=== PATIENT | female | born 1990 | race Caucasian/White ===

== ENCOUNTER 2018-05-27 02:34 | Inpatient (IN) | payer BC ==
[2018-05-27 03:19] LABS: APPEARANCE,URINE SLIGHTLY-CLOUDY; BILIRUBIN,URINE NEGATIVE (NEGATIVE); COLOR,URINE YELLOW; GLUCOSE, URINE NEGATIVE (NEGATIVE); KETONES,URINE TRACE mg/dL (NEGATIVE); LEUKOCYTE ESTERASE,URINE NEGATIVE (NEGATIVE); NITRITE,URINE NEGATIVE (NEGATIVE); PROTEIN,URINE NEGATIVE (NEGATIVE); URINE SPECIFIC GRAVITY 1.012; UROBILINOGEN,URINE NEGATIVE mg/dL (<2.0)
--- NOTE | 2018-05-27 03:31 | Admission Physical ---
Datetime Report Generated by CPN: 05/27/2018 03:31 CURRENT ADMISSION Chief Complaint: Uterine Contractions; Suspected Ruptured Membranes Indication for Induction: Not Applicable Admit Impression : Term, Intrauterine ; Ruptured Membranes Admit Plan: Admit to Unit; Initiate Labor Augmentation Protocol ALLERGIES Medication Allergies: No Medication Allergies: No Known Allergies (05/27/2018) Latex: No Latex Allergies OBSTETRICAL HISTORY EDC: 06/08/2018 00:00 : 2 Para: 0 Term: 0 : 0 SAB: 1 IAB: 0 Ectopic: 0 Livin Cesareans: 0 VBACs: 0 Multiple Births: 0 Gestational Diabetes: No Rh Sensitization: No Incompetent Cervix: No SPEEDY: No Infertility: No ART Treatment: No Uterine Anomaly: No IUGR: No Hx Previous C/S: No Macrosomia: No Hx Loss/Stillborn: No PIH: No Hx : No Placenta Previa/Abruption: No Depression/PP Depression: No PTL/PROM: No Post Hemorrhage: No Current Procedures: Ultrasound; NST Obstetrical History Comments: G1 - G2 - Current SEE RECORDS Alcohol: No Marijuana : No Cocaine: No Other Illicit Drugs: No Cigarettes: Never Smoker. [id number] MEDICAL HISTORY Diabetes: No Blood Transfusion: No Pulmonary Disease (Asthma, TB): No Breast Disease: No Hypertension: No Assistant Branch Manager Surgery: No Heart Disease: No Hosp/Surgery: No Autoimmune Disorder: No Anesthetic Complications: No Kidney Disease: No Abnormal Pap Smear: Yes Neuro/Epilepsy: No Psychiatric Disorders: No Other Medical Diseases: No Hepatitis/Liver Disease: No Significant Family History: No Varicosities/Phlebitis: No Trauma/Violence : No Thyroid Dysfunction: No Medical History Comments: LGSIL, INFECTIOUS HISTORY Gonorrhea: No Genital Herpes: No Chlamydia: No Tuberculosis: No Syphilis: No Hepatitis: No HIV/AIDS Exposure: No Rash or Viral Illness: No HPV: No PHYSICAL EXAM General: Normal HEENT: Normal Neurologic: Normal Thyroid: Normal Heart: Normal Lungs: Normal Breast: Normal Back: Normal Abdomen: Normal Genitourinary Exam: Normal Extremities: Normal DTRs: Normal Pelvic Type: Adequate Vital Signs: Reviewed; Within Normal Limits VAGINAL EXAM Dilatation: ft Effacement: thick Station: -3 Contraction Comments: irreg MEMBRANES [place] Results: Positive Membranes: Ruptured FETUS A EGA: 38.2 Monitoring: External US FHR- Baseline: 130s Variability: Moderate 6-25bpm Accelerations: 15X15 Decelerations: None FHR Category: Category I Admit Comment: PROM @ 0030 PLANS FOR LABOR AND DELIVERY Labor and Delivery: None Pain Management: Epidural Feeding Preference: Breast Benefit of Breast Feed Discussed: Yes Circumcision: N/A INFORMED CONSENT Signature: with User ID: [email or web address]
[2018-05-27 03:36] LABS: URINE AMPHETAMINES SCREEN NEGATIVE; URINE BARBITURATES SCREEN NEGATIVE; URINE BENZODIAZEPINES SCREEN NEGATIVE; URINE COCAINE SCREEN NEGATIVE; URINE MARIJUANA (THC) SCREEN NEGATIVE; URINE METHADONE SCREEN NEGATIVE; URINE PHENCYCLIDINE SCREEN NEGATIVE
[2018-05-27] MEDS ORDERED: OXYTOCIN/NORMAL SALINE 20 UNIT/1,000 ML RTUINJ IV PRN (03:57)
[2018-05-27] MEDS ORDERED: RINGERS SOLUTION,LACTATED 300 ML IV ONE (03:57)
[2018-05-27] MEDS ORDERED: OXYTOCIN 10 UNIT/ML VIAL ONE (04:01)
[2018-05-27] MEDS ORDERED: OXYTOCIN/NORMAL SALINE 20 UNIT/1,000 ML RTUINJ ONE (04:02)
[2018-05-27] MEDS ORDERED: LIDOCAINE 1% INJ-PF (10 MG/ML) 30 ML SDV ONE (04:02)
[2018-05-27] MEDS ORDERED: MISOPROSTOL 0.2 MG TABLET ONE (04:02)
[2018-05-27] MEDS: RINGERS SOLUTION,LACTATED 1,000 ML IV PRN ×2 (04:13→09:17)
[2018-05-27] MEDS ORDERED: MAG HYDROX/AL HYDROX/SIMETH SUSP 30 ML UDCUP ONE (04:25)
[2018-05-27 04:33] LABS: ABSOLUTE EOSINOPHILS # (AUTO) 0.1 10^3/uL (0.0-0.6); ABSOLUTE LYMPHOCYTES (AUTO) 2.5 10^3/uL (0.5-4.7); ABSOLUTE MONOCYTES (AUTO) 0.7 10^3/uL (0.1-1.4); ABSOLUTE NEUT (AUTO) 7.2 10^3/uL (1.7-8.2); BASOPHILS % (AUTO) 0.3 % (0-2); EOSINOPHILS % (AUTO) 0.6 % (0-6); HEMATOCRIT 28.3 % (36.0-47.0); HEMOGLOBIN 9.3 g/dL (12.0-15.5); LYMPHOCYTES % (AUTO) 23.7 % (13-45); MEAN CORPUSCULAR HEMOGLOBIN 24.5 pg (27.0-33.4); MEAN CORPUSCULAR HGB CONC 32.8 g/dL (32.0-36.0); MEAN CORPUSCULAR VOLUME 75 fl (80-97); MONOCYTES % (AUTO) 6.7 % (3-13); PLATELET COUNT 217 10^3/uL (150-450); RED BLOOD COUNT 3.78 10^6/uL (3.72-5.28); RED CELL DISTRIBUTION WIDTH 16.6 % (11.5-14.0); SEGMENTED NEUTROPHILS % (AUTO) 68.7 % (42-78); TOTAL CELLS COUNTED % (AUTO) 100 %; WHITE BLOOD COUNT 10.5 10^3/uL (4.0-10.5)
[2018-05-27] MEDS ORDERED: ONDANSETRON HCL INJ/PF 4 MG/2 ML SDV ONE (06:24)
[2018-05-27] MEDS ORDERED: NALBUPHINE HCL INJ 10 MG/1 ML AMPULE ONE (09:08)
[2018-05-27] MEDS ORDERED: PROMETHAZINE HCL INJ 25 MG/1 ML VIAL ONE (09:09)
--- NOTE | 2018-05-27 09:26 | L&D Progress Notes ---
PROGRESS NOTES Datetime Report Generated by CPN: 05/27/2018 09:25 PROGRESS NOTE Impression: Reassuring Heart Rate Procedures: Sterile Vag Exam Plan: Continue Present Management Comment: continue mgmt clear fluid pain meds VAGINAL EXAM Dilatation: ft Effacement: thick Station: -3 Contractions: irreg LAST VAGINAL EXAM-NURSING Dilitation: 2.0 Dilitation: 0.5 Effacement: 80 Effacement: 25 Station: -1 Station: -3 Contractions: coupling MEMBRANES [place] Results: Positive Membranes: Ruptured FETUS A FHR - Baseline: 125 Decelerations: None : 38.2 SIGNATURE SIGNATURE: ,[id number] SIGNATURE: ,[id number] Assignment: Eden Ruiz MD Signature: with User ID: [email or web address] : with User ID: [email or web address]
[2018-05-27] MEDS ORDERED: BUPIVACAINE HCL 0.25 % INJ/PF (2.5 MG/1 ML) 30 ML VIAL ONE (14:59)
[2018-05-27] MEDS ORDERED: EPHEDRINE SULFATE INJ 50 MG/1 ML AMPULE ONE (14:59)
[2018-05-27] MEDS ORDERED: FENTANYL/BUPIVACAINE/NS/PF 300 MCG/150 ML RTUINJ EPI ONE (14:59)
[2018-05-27] MEDS ORDERED: ACETAMINOPHEN 325 MG TABLET ONE (21:19)
[2018-05-27] MEDS ORDERED: AMPICILLIN SOD INJ 2 GM VIAL IV ONE (23:08)
--- NOTE | 2018-05-27 23:23 | L&D Progress Notes ---
PROGRESS NOTES Datetime Report Generated by CPN: 05/27/2018 23:23 PROGRESS NOTE Impression: Rupture of Membranes Procedures: Intrauterine Pressure Catheter Plan: Continue Present Management; Antibiotic Therapy Informed Consent Obtained: Risks, Benefits and Alternatives Discussed Vital Signs : Reviewed Comment: IUPC placed and ampicillin started. We are approaching 24 hours. If she does not make adequate progress we may consider alternative delivery options. VAGINAL EXAM Dilatation: 5 Effacement: 90 Station: -1 Dilitation: 5.0 Dilitation: 4.0 Effacement: 90 Effacement: 90 Station: -1 Station: -1 Contractions: Dr. Sandoval @ bedside Contractions: U/A reference adjusted Contractions: UTD ctx pattern d/t UA reference, RN @ bedside, pt denies feeling ctx's. Contractions: pt stated. Contractions: pt stated Contractions: Pt stated. [place] readjusted. RN at bedside FETUS A Monitoring: External US Decelerations: None : 38.0 FETUS C SIGNATURE: [id number] Signature: with User ID: [email or web address]
[2018-05-27] MEDS ORDERED: AMPICILLIN SOD INJ 2 GM VIAL ONE (23:26)
[2018-05-28] MEDS ORDERED: OXYTOCIN/NORMAL SALINE 20 UNIT/1,000 ML RTUINJ ONE (04:32)
[2018-05-28] MEDS ORDERED: PROMETHAZINE HCL 25 MG TABLET PO PRN (05:50)
[2018-05-28] MEDS ORDERED: PSEUDOEPHEDRINE HCL 30 MG TABLET PO PRN (05:50)
[2018-05-28] MEDS ORDERED: ACETAMINOPHEN 650 MG SUPP.RECT PR PRN (05:50)
[2018-05-28] MEDS ORDERED: MAGNESIUM HYDROXIDE SUSP 30 ML UDCUP PO PRN (05:50)
[2018-05-28] MEDS ORDERED: NA PHOS,M-B/NA PHOS,DI-BA (ADULT) 133 ML ENEMA PR PRN (05:50)
[2018-05-28] MEDS ORDERED: GLYCERIN/WITCH HAZEL LEAF 1 EACH MED..PAD TP PRN (05:50)
[2018-05-28] MEDS ORDERED: PROMETHAZINE HCL INJ 25 MG/1 ML VIAL IV PRN (05:50)
[2018-05-28] MEDS ORDERED: DIPH/PERTUSS(ACELL)/TETANUS VAC/PF 0.5 ML SYR (>=10YO) IM PRN (05:50)
[2018-05-28] MEDS ORDERED: PROMETHAZINE HCL 25 MG SUPP.RECT PR PRN (05:50)
[2018-05-28] MEDS ORDERED: ZOLPIDEM TARTRATE 5 MG TABLET PO PRN (05:50)
[2018-05-28] MEDS ORDERED: MEASLES,MUMPS&RUBELLA VACC/PF 0.5 ML VIAL SUBCUT PRN (05:50)
[2018-05-28] MEDS ORDERED: DIBUCAINE 1% OINTMENT 28 GM TP PRN (05:50)
[2018-05-28] MEDS ORDERED: ACETAMINOPHEN WITH CODEINE #3 TABLET PO PRN ×2 (05:50)
[2018-05-28] MEDS ORDERED: OXYTOCIN/NORMAL SALINE 20 UNIT/1,000 ML RTUINJ IV PRN (05:50)
[2018-05-28] MEDS ORDERED: BENZOCAINE/MENTHOL AEROSOL SPRAY 56 ML TOP PRN (05:50)
[2018-05-28] MEDS ORDERED: DIPHENHYDRAMINE HCL 25 MG CAPSULE PO PRN (05:50)
--- NOTE | 2018-05-28 07:50 | Delivery Summary ---
Del Sum A-C Datetime Report Generated by CPN: 05/28/2018 07:49 DELIVERY PERSONNEL DELIVERY PERSONNEL: [id number] Delivery Doctor:: Piter Sandoval MD Labor and Delivery Nurse:: Rebecca Fitzpatrick RN Nursery Nurse:: April Sethi RN Glove Pairer/DANCE COACH: Danisha Powell, PHOTOGRAPHY INSTRUCTOR MATERNAL INFORMATION Delivery Anesthesia: Epidural Medications After Delivery: Pitocin Drip 20 Units/1000ml NSS Estimated Blood Loss (ml): 250 Maternal Complications: Other Complication Details: SROM > 24 hours LABOR SUMMARY EDC: 06/08/2018 00:00 No. Babies in Womb: 1 Attempted: No Labor Anesthesia: Epidural LABOR INFORMATION Reason for Induction: Not Applicable Onset of Labor: 05/28/2018 08:53 Complete Dilatation: 05/28/2018 03:54 Other Ripening Agents: N/A Oxytocin: Augmentation Group B Beta Strep: Negative Antibiotics # of Doses: 1 Antibiotics Time of Last Dose: 2333 Name of Antibiotic Given: Ampicillin Steroids Given: None Reason Steroids Not Administered: Not Applicable MEMBRANES Membranes Rupture Method: Spontaneous Rupture of Membranes: 05/27/2018 02:49 Length of Rupture (hr): 26.72 Amniotic Fluid Color: Clear Amniotic Fluid Amount: Moderate Amniotic Fluid Odor: None STAGES OF LABOR Stage 1 hr: -4 Stage 1 min: -59 Stage 2 hr: 1 Stage 2 min: 38 Stage 3 hr: 0 Stage 3 min: 6 Total Time in Labor hr: -3 Total Time in Labor min: -15 VAGINAL DELIVERY Episiotomy: None Laceration #1: Vaginal Laceration Extension #1: First Degree Laceration #2: Vaginal Laceration Extension #2: First Degree Laceration #3: None Laceration Extension #3: N/A Laceration Repair: Yes Laceration Repair Note: two small labial lacerations repaired with 3-0 chromic suture Sponge Count Correct: Vaginal Sweep Performed Sharps Count Correct: Yes CSECTION DELIVERY Primary Indication: N/A Secondary Indication: N/A CSection Incidence: N/A Labor: N/A Elective: N/A CSection Incision: N/A BABY A INFORMATION Infant Delivery Date/Time: 05/28/2018 05:32 Method of Delivery: Vaginal Born in Route : No : N/A Forceps: N/A Vacuum Extraction: N/A Shoulder Dystocia : No PRESENTATION/POSITION BABY A Presentation: Cephalic Cephalic Presentation: Vertex Vertex Position: Left Occipital Anterior Breech Presentation: N/A PLACENTA INFORMATION BABY A Placenta Delivery Time : 05/28/2018 05:38 Placenta Method of Delivery: Spontaneous Placenta Status: Delivered SCORES BABY A Heart Rate 1 min: >100 bpm Resp Effort 1 min: Good Cry Reflex Irritability 1 min: Cough or Sneeze or Pulls Away Muscle Tone 1 min: Active Motion Color 1 min: Body [place], Extremities Blue Resuscitation Effort 1 min: N/A SCORE 1 MIN: 9 Heart Rate 5 min: >100 bpm Resp Effort 5 min: Good Cry Reflex Irritability 5 min: Cough or Sneeze or Pulls Away Muscle Tone 5 min: Active Motion Color 5 min: Body [place], Extremities Blue Resuscitation Effort 5 min: N/A SCORE 5 MIN: 9 INFORMATION BABY A Gestational Age at Delivery: 38.3 Gestational Status: Early Term- 37- 38.6 Weeks Outcome : Stillborn Condition : Stable Sex: Female IDENTIFICATION BABY A Verification Date/Time: 05/28/2018 05:44 ID Band Number: [id number] Mother's Name Verified: Yes Infant RN Verifying : Aaron Fitzpatrick, RN Additional Verifying Personnel: Laurie Sethi RN WEIGHT/LENGTH BABY A Birthweight (gm): 3063 Weight (lb): 6 Infant Weight (oz): 12 Infant Length (in): 20.00 Infant Length (cm): 50.80 CORD INFORMATION BABY A No. Cord Vessels: 3 Nuchal Cord : N/A Cord Blood Taken: Yes-For Eval (Mom's Blood Type - or O+) Infant Suction: None ASSESSMENT BABY A Infant Complications: None Physical Findings at Delivery: Within Normal Limits Skin to Skin: Yes Transferred To: Remains with Mother BABY B INFORMATION : N/A SIGNATURES Signature: with User ID: [email or web address] : I was personally available for consultation and serving as supervising physician for the MLP.
[2018-05-28] MEDS: DOCUSATE SODIUM 100 MG CAPSULE PO SCH ×2 (09:26→17:14)
[2018-05-28] MEDS: SENNOSIDES/DOCUSATE 8.6-50 MG 1 EACH TABLET PO SCH (09:26)
[2018-05-28] MEDS: PRENATAL VITAMIN W DHA CAPSULE PO SCH (09:26)
[2018-05-28] MEDS: IBUPROFEN 800 MG TABLET PO SCH ×3 (09:26→21:59)
[2018-05-28] MEDS: FERROUS SULFATE 325 MG TABLET PO SCH ×2 (09:27→17:14)
[2018-05-28] MEDS: FAMOTIDINE 20 MG TABLET PO SCH ×2 (09:27→22:00)
[2018-05-29] MEDS: IBUPROFEN 800 MG TABLET PO SCH ×3 (06:22→22:33)
[2018-05-29 07:55] LABS: HEMATOCRIT 24.1 % (36.0-47.0); MEAN CORPUSCULAR HEMOGLOBIN 24.7 pg (27.0-33.4); MEAN CORPUSCULAR HGB CONC 32.7 g/dL (32.0-36.0); MEAN CORPUSCULAR VOLUME 76 fl (80-97); PLATELET COUNT 205 10^3/uL (150-450); RED BLOOD COUNT 3.19 10^6/uL (3.72-5.28); RED CELL DISTRIBUTION WIDTH 16.9 % (11.5-14.0); WHITE BLOOD COUNT 9.7 10^3/uL (4.0-10.5)
[2018-05-29 07:57] LABS: HEMOGLOBIN 7.9 g/dL (12.0-15.5)
[2018-05-29] MEDS: SENNOSIDES/DOCUSATE 8.6-50 MG 1 EACH TABLET PO SCH (10:34)
[2018-05-29] MEDS: DOCUSATE SODIUM 100 MG CAPSULE PO SCH ×2 (10:35→18:00)
[2018-05-29] MEDS: PRENATAL VITAMIN W DHA CAPSULE PO SCH (10:35)
[2018-05-29] MEDS: FAMOTIDINE 20 MG TABLET PO SCH ×2 (10:35→22:33)
[2018-05-29] MEDS: FERROUS SULFATE 325 MG TABLET PO SCH ×2 (10:35→18:00)
--- NOTE | 2018-05-29 14:59 | PDOC PROGRESS REPORT ---
Subjective-OB Progress Note for:: 05/29/18 Subjective: states bleeding is slowing, pain controlled with current meds. denies needs Physical Exam (OB) Vital Signs: Temp Pulse Resp BP Pulse Ox 98.1 F 98 16 124/78 100 05/29/18 07:47 05/29/18 07:47 05/29/18 07:47 05/29/18 07:47 05/29/18 07:47 Intake & Output 05/28/18 05/29/18 05/30/18 06:59 06:59 06:59 Intake Total 633 600 Balance 633 600 - Abdomen Description: Soft, Round Hernia Present: No Fundal Description: Firm Fundal Height: u/u - u/2 - Abdominal Distension: No distension Tenderness: Nontender - Extremities Lower extremities: López's sign - neg Calf: Normal, Nontender Objective-Diagnostic Laboratory: 05/29/18 07:23 05/29/18 07:23 WBC 9.7 RBC 3.19 L Hgb 7.9 L Hct 24.1 L MCV 76 L MCH 24.7 L MCHC 32.7 RDW 16.9 H Plt Count 205 Assessment and Plan(PN) - Assessment and Plan (1) Normal vaginal delivery Is this a current diagnosis for this admission?: Yes - Time Spent with Patient Time with patient: Less than 15 minutes Medications reviewed and adjusted accordingly: Yes - Disposition Anticipated Discharge: Home Within: within 24 hours
[2018-05-30] MEDS: IBUPROFEN 800 MG TABLET PO SCH (05:51)
[2018-05-30 07:40] LABS: ABSOLUTE EOSINOPHILS # (AUTO) 0.2 10^3/uL (0.0-0.6); ABSOLUTE LYMPHOCYTES (AUTO) 1.9 10^3/uL (0.5-4.7); ABSOLUTE MONOCYTES (AUTO) 0.4 10^3/uL (0.1-1.4); ABSOLUTE NEUT (AUTO) 5.1 10^3/uL (1.7-8.2); BASOPHILS % (AUTO) 0.4 % (0-2); EOSINOPHILS % (AUTO) 2.7 % (0-6); HEMATOCRIT 22.7 % (36.0-47.0); LYMPHOCYTES % (AUTO) 24.8 % (13-45); MEAN CORPUSCULAR HEMOGLOBIN 25.1 pg (27.0-33.4); MEAN CORPUSCULAR HGB CONC 32.9 g/dL (32.0-36.0); MEAN CORPUSCULAR VOLUME 76 fl (80-97); MONOCYTES % (AUTO) 5.1 % (3-13); PLATELET COUNT 190 10^3/uL (150-450); RED BLOOD COUNT 2.98 10^6/uL (3.72-5.28); RED CELL DISTRIBUTION WIDTH 16.8 % (11.5-14.0); TOTAL CELLS COUNTED % (AUTO) 100 %; WHITE BLOOD COUNT 7.6 10^3/uL (4.0-10.5)
[2018-05-30 07:43] LABS: HEMOGLOBIN 7.5 g/dL (12.0-15.5)
--- NOTE | 2018-05-30 08:47 | PDOC DISCHARGE SUMMARY ---
Final Diagnosis Discharge Date: 05/30/18 - Final Diagnosis (1) Normal vaginal delivery Is this a current diagnosis for this admission?: Yes Discharge Data - Discharge Medication Prescriptions: Ibuprofen [Motrin 800 mg Tablet] 800 mg PO Q8HP PRN #60 tablet PRN Reason: Home Medications: Prenat 115/Iron Fum/Folic/Dss [ 19 Tablet] 1 each PO DAILY 05/27/18 Ferrous Sulfate [Feosol 325 mg Tablet] 325 mg PO BID tablet 05/30/18 Ibuprofen [Motrin 800 mg Tablet] 800 mg PO Q8HP PRN #60 tablet 05/30/18 Procedures: NST Intrapartum Procedure(s): Spontaneous Vaginal Delivery Laceration-Degree: 1st - Diagnosis Test Laboratory: Temp Pulse Resp BP Pulse Ox 98.5 F 87 18 124/72 99 05/30/18 08:21 05/30/18 08:21 05/30/18 08:21 05/30/18 08:21 05/30/18 08:21 05/27/18 05/27/18 05/29/18 02:45 04:00 07:23 RBC 3.78 3.19 L Hgb 9.3 L 7.9 L Hct 28.3 L 24.1 L Urine Opiates Screen NEGATIVE 05/30/18 07:10 RBC 2.98 L Hgb 7.5 L Hct 22.7 L Urine Opiates Screen - Discharge information/Instructions Discharge Activity: Balance Activity w/Rest, Pelvic Rest, Slowly Increase Activity Discharge Diet: Regular Disposition: HOME, SELF-CARE Follow up with: [facility] in: 4, Weeks
[2018-05-30 09:28] VITALS: BP 123/74
[2018-05-30] MEDS: FAMOTIDINE 20 MG TABLET PO SCH (10:44)
[2018-05-30] MEDS: SENNOSIDES/DOCUSATE 8.6-50 MG 1 EACH TABLET PO SCH (10:44)
[2018-05-30] MEDS: PRENATAL VITAMIN W DHA CAPSULE PO SCH (10:44)
[2018-05-30] MEDS: FERROUS SULFATE 325 MG TABLET PO SCH (10:44)
[2018-05-30] MEDS: DOCUSATE SODIUM 100 MG CAPSULE PO SCH (10:44)
== END 2018-05-30 12:13 | disposition home or self-care (01) | DRG 807 ==
LOC: LC 02:34 → LR 03:29 → 2S 05-28 08:23
PROVIDERS: ADMIT Obstetrics & Gynecology; ATTEND Obstetrics & Gynecology
PROC: 10E0XZZ Delivery of Products of Conception, External Approach (ICD-10-PCS; principal; 2018-05-28)
PROC: 0HQ9XZZ Repair Perineum Skin, External Approach (ICD-10-PCS; 2018-05-28)
DX: O42.12 Full-term premature rupture of membranes, onset of labor more than 24 hours following rupture (principal); Z37.0 Single live birth; O70.0 First degree perineal laceration during delivery; Z3A.38 38 weeks gestation of pregnancy
CPT/HCPCS: 36415; 80307; 81005; 84112; 85025; 85027; 86592; 86850; 86900; 86901; 94760; J0290; J2300; J2405; J2550; J2590; J3010; J3490

== ENCOUNTER 2019-03-04 14:56 | Inpatient (IN) | payer BC ==
[2019-03-04] MEDS ORDERED: RINGERS SOLUTION,LACTATED 1,000 ML IV ONE (15:03)
[2019-03-04] MEDS ORDERED: PROMETHAZINE HCL INJ 25 MG/1 ML VIAL IV ONE (15:04)
[2019-03-04] MEDS: RINGERS SOLUTION,LACTATED 1,000 ML IV PRN ×2 (15:18→16:49)
[2019-03-04] MEDS ORDERED: PROMETHAZINE HCL INJ 25 MG/1 ML VIAL ONE (15:26)
[2019-03-04 15:42] LABS: ABSOLUTE BASOPHILS # (AUTO) 0.1 10^3/uL (0.0-0.2); ABSOLUTE LYMPHOCYTES (AUTO) 1.7 10^3/uL (0.5-4.7); ABSOLUTE MONOCYTES (AUTO) 0.7 10^3/uL (0.1-1.4); ABSOLUTE NEUT (AUTO) 12.1 10^3/uL (1.7-8.2); BASOPHILS % (AUTO) 0.4 % (0-2); EOSINOPHILS % (AUTO) 0.3 % (0-6); HEMATOCRIT 30.9 % (36.0-47.0); HEMOGLOBIN 10.2 g/dL (12.0-15.5); LYMPHOCYTES % (AUTO) 11.8 % (13-45); MEAN CORPUSCULAR HEMOGLOBIN 26.9 pg (27.0-33.4); MEAN CORPUSCULAR HGB CONC 33.1 g/dL (32.0-36.0); MEAN CORPUSCULAR VOLUME 81 fl (80-97); PLATELET COUNT 279 10^3/uL (150-450); SEGMENTED NEUTROPHILS % (AUTO) 82.5 % (42-78); TOTAL CELLS COUNTED % (AUTO) 100 %; WHITE BLOOD COUNT 14.7 10^3/uL (4.0-10.5)
[2019-03-04 17:01] LABS: APPEARANCE,URINE CLEAR; BILIRUBIN,URINE NEGATIVE (NEGATIVE); COLOR,URINE YELLOW; GLUCOSE, URINE NEGATIVE (NEGATIVE); KETONES,URINE 80 mg/dL (NEGATIVE); LEUKOCYTE ESTERASE,URINE NEGATIVE (NEGATIVE); NITRITE,URINE NEGATIVE (NEGATIVE); PROTEIN,URINE NEGATIVE (NEGATIVE); URINE SPECIFIC GRAVITY 1.009; UROBILINOGEN,URINE NEGATIVE mg/dL (<2.0)
[2019-03-04 17:16] LABS: URINE AMPHETAMINES SCREEN NEGATIVE; URINE BARBITURATES SCREEN NEGATIVE; URINE BENZODIAZEPINES SCREEN NEGATIVE; URINE COCAINE SCREEN NEGATIVE; URINE MARIJUANA (THC) SCREEN NEGATIVE; URINE METHADONE SCREEN NEGATIVE; URINE PHENCYCLIDINE SCREEN NEGATIVE
[2019-03-04] MEDS ORDERED: ACETAMINOPHEN 325 MG TABLET PO PRN (18:06)
[2019-03-04] MEDS ORDERED: PROMETHAZINE HCL INJ 25 MG/1 ML VIAL IV PRN (18:06)
[2019-03-04] MEDS ORDERED: NALBUPHINE HCL INJ 10 MG/1 ML AMPULE INJ PRN (18:06)
[2019-03-04] MEDS ORDERED: CEFTRIAXONE INJ 500 MG VIAL IV SCH (18:30)
[2019-03-04] MEDS ORDERED: INFLUENZA QUAD (6MOS+) 2019-20 VAC 0.5 ML SYR IM ONE (18:30)
--- NOTE | 2019-03-04 18:42 | PDOC CONSULTATION ---
Consultation Consult Date: 03/04/19 Attending physician:: TORSTEN SEGOVIA Provider Consulted: DEMETRIS SUN Consult reason:: Post appendectomy nausea vomiting and abdominal pain History of Present Illness Admission Date/PCP: 03/04/19 17:55 JESSICA PEARSON MD Patient complains of: Abdominal pain History of Present Illness: BARRON ALEXANDRA is a 29 year old female Admitted directly to the hospital, [facility], L&D, from home, complaining of a several day history of abdominal pain. The patient is 19-week intrauterine , resident of [facility], who was visiting [facility] over the weekend. On Friday she developed acute onset abdominal pain right lower quadrant, was seen in [facility] and transferred to a healthcare facility in [facility]. She underwent MRI scan which showed findings consistent with bulging appendix. She underwent laparoscopic appendectomy, 3 port approach, and recovered uneventfully. She was discharged home the following day. No medical records available. She had some post operative right lower quadrant pain, but this escalated over the last 48 hours and [facility], had a ultrasound of her abdomen which revealed the viable intrauterine fetus. No other comments made. Because of persisting abdominal pain, nausea vomiting, decreased p.o. intake, she was admitted to the hospital for further evaluation. She is found to have a leukocytosis of 14,000 and right lower quadrant tenderness. Surgery was consulted. Past Medical History Past Medical History: Obesity Past Surgical History Past Surgical History: Laparoscopic appendectomy, 4 days ago, [facility] Social History Information Source: Patient Smoking Status: Never Smoker Electronic Cigarette use?: No Frequency of Alcohol Use: None Hx Recreational Drug Use: No Hx Prescription Drug Abuse: No Family History Family History: None Parental Family History Reviewed: No Children Family History Reviewed: No Sibling(s) Family History Reviewed.: No Medication/Allergy Home Medications: Prenat 115/Iron Fum/Folic/Dss [ 19 Tablet] 1 each PO DAILY 05/27/18 Allergies/Adverse Reactions: No Known Allergies Allergy (Verified 03/04/19 15:04) Review of Systems Constitutional: PRESENT: as per HPI Eyes: ABSENT: visual disturbances Ears: ABSENT: hearing changes Cardiovascular: ABSENT: chest pain, dyspnea on exertion, edema, orthropnea, palpitations Gastrointestinal: PRESENT: as per HPI, other. ABSENT: abdominal pain, constipation, diarrhea, hematemesis, hematochezia, nausea, vomiting Genitourinary: ABSENT: dysuria, hematuria Musculoskeletal: ABSENT: joint swelling Integumentary: ABSENT: rash, wounds Psychiatric: ABSENT: anxiety, depression, homidical ideation, suicidal ideation Physical Exam Vital Signs: Intake & Output 03/03/19 03/04/19 03/05/19 06:59 06:59 06:59 Intake Total 190 Balance 190 Weight 94.1 kg General appearance: PRESENT: mild distress Head exam: PRESENT: normocephalic Mouth exam: PRESENT: dry mucosa Neck exam: PRESENT: full ROM Respiratory exam: PRESENT: clear to auscultation helen Cardiovascular exam: PRESENT: RRR Pulses: PRESENT: normal carotid pulses, normal radial pulses, normal femoral pulses GI/Abdominal exam: PRESENT: diminished bowel sounds, guarding, other - Tenderness right lower quadrant with mild guarding Extremities exam: PRESENT: full ROM Musculoskeletal exam: PRESENT: full ROM Psychiatric exam: PRESENT: appropriate affect, depressed Skin exam: PRESENT: dry Results Laboratory Results: 03/04/19 15:32 03/04/19 03/04/19 15:32 16:28 WBC 14.7 H RBC 3.80 Hgb 10.2 L Hct 30.9 L MCV 81 MCH 26.9 L MCHC 33.1 RDW 15.0 H Plt Count 279 Seg Neutrophils % 82.5 H Urine Color YELLOW Urine Appearance CLEAR Urine pH 7.0 Ur Specific [place] 1.009 Urine Protein NEGATIVE Urine Glucose (UA) NEGATIVE Urine Ketones 80 H Urine Blood NEGATIVE Urine Nitrite NEGATIVE Ur Leukocyte Esterase NEGATIVE Urine WBC (Auto) 1 Urine RBC (Auto) 0 Assessment & Plan - Diagnosis (1) Abdominal pain Is this a current diagnosis for this admission?: Yes Plan: Impression: 29-year-old white female, 19-week intrauterine , 4-day status post laparoscopic appendectomy at outlying facility, now with persisting abdominal pain right lower quadrant tenderness and leukocytosis; clinical and laboratory findings concerning for possible intra-abdominal sepsis versus appendiceal stump leak Recommendations and plan: 1. At this moment the patient is not toxic, but certainly has a concerning abdomen with right lower quadrant tenderness. I recommend IV fluids, intravenous antibiotics, and keep n.p.o. 2. Radiologic imaging such as MRI considered, but feel that he may be low. Will follow patient closely. If she worsens from a clinical standpoint, she may need to be taken back to the operating room for laparoscopic evaluation, washout, possible drain placement and additional surgery. This was discussed with her briefly this afternoon. 3. I discussed the above with Dr. Torsten Segovia, manager progressive care, who agrees with plan. (3) Intrauterine Is this a current diagnosis for this admission?: Yes (4) Status post laparoscopic appendectomy Is this a current diagnosis for this admission?: Yes (5) Obesity (BMI 35.0-39.9 without comorbidity) Is this a current diagnosis for this admission?: Yes - Time Time Spent: 50 to 70 Minutes Smoking Cessation Education: over 10 minutes Medications reviewed and adjusted accordingly: Yes Anticipated discharge: Home - Inpatient Certification Based on my medical assessment, after consideration of the patient's comorbidities, presenting symptoms, or acuity I expect that the services needed warrant INPATIENT care.: Yes I certify that my determination is in accordance with my understanding of Medicare's requirements for reasonable and necessary INPATIENT services [42 CFR 412.3e].: Yes Medical Necessity: Need For IV Fluids, Need for Pain Control, Need for IV Antibiotics, Need for Surgery
--- NOTE | 2019-03-04 19:47 | PDOC H&P ---
History of Present Illness Admission Date/PCP: 03/04/19 17:55 JESSICA PEARSON MD Patient complains of: right lower quadrant pain post appendectomy 4 days ago. Pt also c/o nausea History of Present Illness: BARRON ALEXANDRA is a 29 year old female 19 week IUP s/p appendectomy 4 days ago, She was seen in the office today by Dr. Sandoval and was c/o RLQ pain and nausea and vomiting. PT seen by surgery and recommends antibiotics and close observation. Social History Smoking Status: Never Smoker Electronic Cigarette use?: No Frequency of Alcohol Use: None Hx Recreational Drug Use: No Hx Prescription Drug Abuse: No Family History Family History: None Parental Family History Reviewed: Yes Children Family History Reviewed: Yes Sibling(s) Family History Reviewed.: Yes Medication/Allergy Home Medications: Prenat 115/Iron Fum/Folic/Dss [ 19 Tablet] 1 each PO DAILY 05/27/18 Allergies/Adverse Reactions: No Known Allergies Allergy (Verified 03/04/19 15:04) Physical Exam - Physical Exam Vital Signs: Intake & Output 03/03/19 03/04/19 03/05/19 06:59 06:59 06:59 Intake Total 190 Balance 190 Weight 94.1 kg General appearance: PRESENT: mild distress Respiratory exam: PRESENT: clear to auscultation helen Cardiovascular exam: PRESENT: RRR GI/Abdominal exam: PRESENT: guarding Result Laboratory Results: 03/04/19 15:32 03/04/19 03/04/19 15:32 16:28 WBC 14.7 H RBC 3.80 Hgb 10.2 L Hct 30.9 L MCV 81 MCH 26.9 L MCHC 33.1 RDW 15.0 H Plt Count 279 Seg Neutrophils % 82.5 H Urine Color YELLOW Urine Appearance CLEAR Urine pH 7.0 Ur Specific [place] 1.009 Urine Protein NEGATIVE Urine Glucose (UA) NEGATIVE Urine Ketones 80 H Urine Blood NEGATIVE Urine Nitrite NEGATIVE Ur Leukocyte Esterase NEGATIVE Urine WBC (Auto) 1 Urine RBC (Auto) 0 Assessment & Plan - Diagnosis (1) Abdominal pain Is this a current diagnosis for this admission?: Yes (2) Intrauterine Is this a current diagnosis for this admission?: Yes (3) Leukocytosis Is this a current diagnosis for this admission?: Yes - Plan Summary Plan Summary: IV antibiotics, hydration and observation
[2019-03-04] MEDS: CEFTRIAXONE 1 GM/D5W RTU 1 GM/50 ML RTUPB IV SCH (19:58)
[2019-03-04] MEDS ORDERED: NALBUPHINE HCL INJ 10 MG/1 ML AMPULE ONE (20:34)
[2019-03-04] MEDS ORDERED: KETOROLAC TROMETHAMINE INJ/PF 30 MG/1 ML SDV ONE (20:47)
[2019-03-05] MEDS: RINGERS SOLUTION,LACTATED 1,000 ML IV PRN ×3 (04:09→22:40)
[2019-03-05] MEDS: CEFTRIAXONE 1 GM/D5W RTU 1 GM/50 ML RTUPB IV SCH ×2 (05:24→17:14)
--- NOTE | 2019-03-05 08:18 | PDOC PROGRESS REPORT ---
Subjective Progress Note for:: 03/05/19 Subjective:: Pains RLQ not any worse than yesterday Some Reflux "heartburn" which she uses Tums at home to get relief Reason For Visit: IUP 19+5 WEEKS NAUSEA AND VOMITING S/P APPENDECTOM Physical Exam Vital Signs: Temp Pulse Resp BP Pulse Ox 98.2 F 100 16 128/70 H 100 03/05/19 04:00 03/05/19 04:00 03/05/19 04:00 03/05/19 04:00 03/05/19 04:00 Intake & Output 03/04/19 03/05/19 03/06/19 06:59 06:59 06:59 Intake Total 1240 Balance 1240 Weight 95.4 kg Exam: Abdomen is soft. Mild tenderness RLQ Results Laboratory Results: 03/04/19 15:32 03/04/19 03/04/19 15:32 16:28 WBC 14.7 H RBC 3.80 Hgb 10.2 L Hct 30.9 L MCV 81 MCH 26.9 L MCHC 33.1 RDW 15.0 H Plt Count 279 Seg Neutrophils % 82.5 H Urine Color YELLOW Urine Appearance CLEAR Urine pH 7.0 Ur Specific [place] 1.009 Urine Protein NEGATIVE Urine Glucose (UA) NEGATIVE Urine Ketones 80 H Urine Blood NEGATIVE Urine Nitrite NEGATIVE Ur Leukocyte Esterase NEGATIVE Urine WBC (Auto) 1 Urine RBC (Auto) 0 Assessment & Plan - Diagnosis (1) Abdominal pain Is this a current diagnosis for this admission?: Yes (2) Intrauterine Is this a current diagnosis for this admission?: Yes (3) Leukocytosis Is this a current diagnosis for this admission?: Yes (4) Obesity (BMI 35.0-39.9 without comorbidity) Is this a current diagnosis for this admission?: Yes (5) Status post laparoscopic appendectomy Is this a current diagnosis for this admission?: Yes - Time Time Spent with patient: 15-24 minutes - Inpatient Certification Medical Necessity: Need For IV Fluids, Need for IV Antibiotics - Plan Summary Plan Summary: Continue IV antibiotics for possible residual inflammation post appendectomy Check WBC in am Start sips of clears today and give Tums po prn
--- NOTE | 2019-03-05 10:26 | PDOC PROGRESS REPORT ---
Subjective Progress Note for:: 03/05/19 Subjective:: she reports that she is doing much better today. Reason For Visit: IUP 19+5 WEEKS NAUSEA AND VOMITING S/P APPENDECTOM Physical Exam - Physical Exam Vital Signs: Temp Pulse Resp BP Pulse Ox 98.0 F 117 H 16 117/68 99 03/05/19 07:42 03/05/19 07:42 03/05/19 07:42 03/05/19 07:42 03/05/19 07:42 Intake & Output 03/04/19 03/05/19 03/06/19 06:59 06:59 06:59 Intake Total 1240 50 Balance 1240 50 Weight 95.4 kg General appearance: PRESENT: no acute distress, well-developed, well-nourished Result Laboratory Results: 03/04/19 15:32 03/04/19 03/04/19 15:32 16:28 WBC 14.7 H RBC 3.80 Hgb 10.2 L Hct 30.9 L MCV 81 MCH 26.9 L MCHC 33.1 RDW 15.0 H Plt Count 279 Seg Neutrophils % 82.5 H Urine Color YELLOW Urine Appearance CLEAR Urine pH 7.0 Ur Specific [place] 1.009 Urine Protein NEGATIVE Urine Glucose (UA) NEGATIVE Urine Ketones 80 H Urine Blood NEGATIVE Urine Nitrite NEGATIVE Ur Leukocyte Esterase NEGATIVE Urine WBC (Auto) 1 Urine RBC (Auto) 0 Assessment & Plan - Diagnosis (1) Abdominal pain Is this a current diagnosis for this admission?: Yes - Time Time Spent with patient: 15-24 minutes Within: within 72 hours - Plan Summary Plan Summary: Plan per surgery is to advance diet tomorrow and likely home Friday.
[2019-03-05] MEDS: CALCIUM CARBONATE 500 MG TAB.CHEW PO PRN ×3 (11:23→20:19)
[2019-03-06] MEDS: CALCIUM CARBONATE 500 MG TAB.CHEW PO PRN ×2 (06:45→10:58)
[2019-03-06] MEDS: CEFTRIAXONE 1 GM/D5W RTU 1 GM/50 ML RTUPB IV SCH ×2 (06:45→17:48)
[2019-03-06] MEDS: RINGERS SOLUTION,LACTATED 1,000 ML IV PRN ×2 (06:46→15:00)
[2019-03-06 07:58] LABS: ABSOLUTE BASOPHILS # (AUTO) 0.1 10^3/uL (0.0-0.2); ABSOLUTE EOSINOPHILS # (AUTO) 0.1 10^3/uL (0.0-0.6); ABSOLUTE LYMPHOCYTES (AUTO) 1.4 10^3/uL (0.5-4.7); ABSOLUTE MONOCYTES (AUTO) 0.9 10^3/uL (0.1-1.4); ABSOLUTE NEUT (AUTO) 13.8 10^3/uL (1.7-8.2); BASOPHILS % (AUTO) 0.3 % (0-2); EOSINOPHILS % (AUTO) 0.4 % (0-6); HEMATOCRIT 29.6 % (36.0-47.0); HEMOGLOBIN 9.8 g/dL (12.0-15.5); LYMPHOCYTES % (AUTO) 8.5 % (13-45); MEAN CORPUSCULAR HEMOGLOBIN 26.9 pg (27.0-33.4); MEAN CORPUSCULAR HGB CONC 33.1 g/dL (32.0-36.0); MEAN CORPUSCULAR VOLUME 82 fl (80-97); MONOCYTES % (AUTO) 5.3 % (3-13); PLATELET COUNT 262 10^3/uL (150-450); RED BLOOD COUNT 3.63 10^6/uL (3.72-5.28); RED CELL DISTRIBUTION WIDTH 15.1 % (11.5-14.0); SEGMENTED NEUTROPHILS % (AUTO) 85.5 % (42-78); TOTAL CELLS COUNTED % (AUTO) 100 %; WHITE BLOOD COUNT 16.2 10^3/uL (4.0-10.5)
[2019-03-06] MEDS ORDERED: INFLUENZA QUAD (6MOS+) 2019-20 VAC 0.5 ML SYR IM ONE (08:00)
--- NOTE | 2019-03-06 10:09 | PDOC PROGRESS REPORT ---
Subjective Progress Note for:: 03/06/19 Subjective:: DOing well this am. Reports good FM. No n/v overnight. Is having reflux. Taking lots of Tums. SHe denies vaginal bleeding, cramping or pain. Denies f/c. Reason For Visit: IUP 19+5 WEEKS NAUSEA AND VOMITING S/P APPENDECTOM Physical Exam - Physical Exam Vital Signs: Temp Pulse Resp BP Pulse Ox 98.2 F 112 H 16 120/70 98 03/06/19 03:14 03/06/19 03:14 03/06/19 03:14 03/06/19 03:14 03/06/19 03:14 Intake & Output 03/05/19 03/06/19 03/07/19 06:59 06:59 06:59 Intake Total 1240 3284 Balance 1240 3284 Weight 95.4 kg General appearance: PRESENT: no acute distress, cooperative Respiratory exam: PRESENT: clear to auscultation helen Cardiovascular exam: PRESENT: RRR, +S1, +S2 GI/Abdominal exam: PRESENT: soft - Non tender and not distended. Psychiatric exam: PRESENT: appropriate affect Skin exam: PRESENT: dry, warm Result Laboratory Results: 03/06/19 07:42 03/06/19 07:42 WBC 16.2 H RBC 3.63 L Hgb 9.8 L Hct 29.6 L MCV 82 MCH 26.9 L MCHC 33.1 RDW 15.1 H Plt Count 262 Seg Neutrophils % 85.5 H Assessment & Plan - Time Time Spent with patient: Less than 15 minutes
[2019-03-06] MEDS: PANTOPRAZOLE SODIUM 40 MG VIAL IV SCH (11:06)
--- NOTE | 2019-03-06 14:35 | PDOC PROGRESS REPORT ---
Subjective Progress Note for:: 03/06/19 Subjective:: Pains RLQ subsiding Reason For Visit: IUP 19+5 WEEKS NAUSEA AND VOMITING S/P APPENDECTOM Physical Exam Vital Signs: Temp Pulse Resp BP Pulse Ox 97.7 F 127 H 16 128/74 H 98 03/06/19 11:14 03/06/19 11:14 03/06/19 11:14 03/06/19 11:14 03/06/19 11:14 Intake & Output 03/05/19 03/06/19 03/07/19 06:59 06:59 06:59 Intake Total 1240 3284 50 Balance 1240 3284 50 Weight 95.4 kg Exam: Abdomen is soft with very mild tenderness in the RLQ Results Laboratory Results: 03/06/19 07:42 03/06/19 07:42 WBC 16.2 H RBC 3.63 L Hgb 9.8 L Hct 29.6 L MCV 82 MCH 26.9 L MCHC 33.1 RDW 15.1 H Plt Count 262 Seg Neutrophils % 85.5 H Assessment & Plan - Diagnosis (1) Abdominal pain Qualifiers: Abdominal location: right lower quadrant Qualified Code(s): R10.31 - Right lower quadrant pain Is this a current diagnosis for this admission?: Yes (2) Intrauterine Is this a current diagnosis for this admission?: Yes (3) Leukocytosis Is this a current diagnosis for this admission?: Yes (4) Obesity (BMI 35.0-39.9 without comorbidity) Is this a current diagnosis for this admission?: Yes (5) Status post laparoscopic appendectomy Is this a current diagnosis for this admission?: Yes - Time Time Spent with patient: 15-24 minutes - Inpatient Certification Medical Necessity: Need for IV Antibiotics - Plan Summary Plan Summary: Patient feeling a lot better today. Just with minimal tenderness RLQ. However. WBC still elvated. Plan: Continue IV antibiotics Re-evaluate in Am Repeat WBC in am
[2019-03-06] MEDS: KETOROLAC TROMETHAMINE INJ/PF 30 MG/1 ML SDV IV PRN (23:59)
[2019-03-07] MEDS: RINGERS SOLUTION,LACTATED 1,000 ML IV PRN ×2 (00:14→12:12)
[2019-03-07] MEDS ORDERED: ACETAMINOPHEN 1,000 MG/100 ML RTUPB IV ONE (01:15)
--- NOTE | 2019-03-07 02:27 | PDOC PROGRESS REPORT ---
Subjective Progress Note for:: 03/07/19 Subjective:: Called to patients room to evaluate her for vaginal discharge-new onset. Reports had increased pain this evening. Then when she got up to go to restroom she felt a small gush of vaginal discharge. It looked yellow to wynne and had an odor. She did not get up or go to restroom and has been waiting for exam. No fever, chills. Abdominal pain off and on in lower abdomen -more towards right and does radiate to her back. Recieved toradol and this help pain somewhat Feels movement. RN in room states FHT were in 150s to 170s. NO elevated temp. VSS Reason For Visit: IUP 19+5 WEEKS NAUSEA AND VOMITING S/P APPENDECTOM Physical Exam - Physical Exam Vital Signs: Temp Pulse Resp BP Pulse Ox 98.3 F 112 H 16 126/77 H 98 03/07/19 00:06 03/07/19 00:06 03/07/19 00:06 03/07/19 00:06 03/07/19 00:06 Intake & Output 03/05/19 03/06/19 03/07/19 06:59 06:59 06:59 Intake Total 1240 3284 2050 Balance 1240 3284 2050 Weight 95.4 kg General appearance: PRESENT: no acute distress, cooperative GI/Abdominal exam: PRESENT: soft - MIldly tender in lower quadrants. No rebound or guarding. No fundal tenderness - Gynecological Exam Labia: discharge Vagina: discharge - Wynne to yellow discharge noted in vagina- large amount and malodorous Cervix: other - Cervix appears closed and on palpation it is thick and not dilated. It is soft and does not appear friable Uterus: other - Uterus not tender Mild tenderness right adnexa Result Laboratory Results: 03/06/19 07:42 03/06/19 07:42 WBC 16.2 H RBC 3.63 L Hgb 9.8 L Hct 29.6 L MCV 82 MCH 26.9 L MCHC 33.1 RDW 15.1 H Plt Count 262 Seg Neutrophils % 85.5 H Assessment & Plan - Diagnosis (1) Status post laparoscopic appendectomy Is this a current diagnosis for this admission?: Yes (2) Abdominal pain Qualifiers: Abdominal location: right lower quadrant Qualified Code(s): R10.31 - Right lower quadrant pain Is this a current diagnosis for this admission?: Yes (3) Leukocytosis Is this a current diagnosis for this admission?: Yes - Time Time Spent with patient: 15-24 minutes - / - Plan Summary Plan Summary: VSS, afebrile Ferning negative G/C obtained Vaginal culture obtained of large amount of malodorous vaginal discharge (wynne to yellow) Suspect possible endometritis although I am uncertain if it coming from the uterus or by fistula from RLQ appendectomy surgical site. CBC ordered for AM moved to now. Discussed with Dr. Wilhelm. May need MRI this am. MOnitor closely for s/s of worsening infection
[2019-03-07] MEDS ORDERED: METRONIDAZOLE 500 MG/NS RTU 500 MG/100 ML RTUPB IV ONE (02:46)
[2019-03-07 03:41] LABS: ABSOLUTE MONOCYTES (AUTO) 0.5 10^3/uL (0.1-1.4); ABSOLUTE NEUT (AUTO) 12.6 10^3/uL (1.7-8.2); BASOPHILS % (AUTO) 0.3 % (0-2); EOSINOPHILS % (AUTO) 0.1 % (0-6); HEMATOCRIT 29.5 % (36.0-47.0); HEMOGLOBIN 9.7 g/dL (12.0-15.5); LYMPHOCYTES % (AUTO) 7.2 % (13-45); MEAN CORPUSCULAR HEMOGLOBIN 26.8 pg (27.0-33.4); MEAN CORPUSCULAR HGB CONC 32.9 g/dL (32.0-36.0); MEAN CORPUSCULAR VOLUME 81 fl (80-97); MONOCYTES % (AUTO) 3.9 % (3-13); PLATELET COUNT 256 10^3/uL (150-450); RED BLOOD COUNT 3.62 10^6/uL (3.72-5.28); RED CELL DISTRIBUTION WIDTH 14.8 % (11.5-14.0); SEGMENTED NEUTROPHILS % (AUTO) 88.5 % (42-78); TOTAL CELLS COUNTED % (AUTO) 100 %; WHITE BLOOD COUNT 14.3 10^3/uL (4.0-10.5)
[2019-03-07 03:59] LABS: CHLAM PCR NOT DETECTED (NOT DETECT)
[2019-03-07] MEDS: CEFTRIAXONE 1 GM/D5W RTU 1 GM/50 ML RTUPB IV SCH (05:39)
[2019-03-07 08:09] LABS: ABSOLUTE LYMPHOCYTES (AUTO) 0.9 10^3/uL (0.5-4.7); ABSOLUTE MONOCYTES (AUTO) 0.9 10^3/uL (0.1-1.4); ABSOLUTE NEUT (AUTO) 14.8 10^3/uL (1.7-8.2); BASOPHILS % (AUTO) 0.2 % (0-2); EOSINOPHILS % (AUTO) 0.2 % (0-6); HEMATOCRIT 28.9 % (36.0-47.0); HEMOGLOBIN 9.6 g/dL (12.0-15.5); LYMPHOCYTES % (AUTO) 5.1 % (13-45); MEAN CORPUSCULAR HEMOGLOBIN 26.9 pg (27.0-33.4); MEAN CORPUSCULAR HGB CONC 33.2 g/dL (32.0-36.0); MEAN CORPUSCULAR VOLUME 81 fl (80-97); MONOCYTES % (AUTO) 5.5 % (3-13); PLATELET COUNT 256 10^3/uL (150-450); RED BLOOD COUNT 3.57 10^6/uL (3.72-5.28); RED CELL DISTRIBUTION WIDTH 14.9 % (11.5-14.0); TOTAL CELLS COUNTED % (AUTO) 100 %; WHITE BLOOD COUNT 16.7 10^3/uL (4.0-10.5)
[2019-03-07] MEDS: METRONIDAZOLE RTU 500 MG/NS 100 ML IV SCH ×2 (08:19→18:49)
[2019-03-07] MEDS: KETOROLAC TROMETHAMINE INJ/PF 30 MG/1 ML SDV IV PRN (08:20)
[2019-03-07] MEDS ORDERED: PIPERACILLIN/TAZOBACTAM 3.375 GM VIAL IV SCH (08:45)
--- NOTE | 2019-03-07 09:58 | PDOC PROGRESS REPORT ---
Subjective Progress Note for:: 03/07/19 Subjective:: Patient still having abdominal pain, heart rate. Had vaginal discharge of unknown certain etiology yesterday on pelvic examination. He is on a diet, soft mechanical tolerating that well. Reason For Visit: IUP 19+5 WEEKS NAUSEA AND VOMITING S/P APPENDECTOM Physical Exam Vital Signs: Temp Pulse Resp BP Pulse Ox 98.6 F 121 H 18 139/73 H 98 03/07/19 07:28 03/07/19 07:28 03/07/19 07:28 03/07/19 07:28 03/07/19 07:28 Intake & Output 03/06/19 03/07/19 03/08/19 06:59 06:59 06:59 Intake Total 3284 2580 Balance 3284 2580 Weight 92.8 kg General appearance: PRESENT: mild distress GI/Abdominal exam: PRESENT: other - Abdomen examined. Less tender compared to 3 days ago. Still some guarding to deep palpation on both right and left abdominal sides Results Laboratory Results: 03/07/19 07:30 03/07/19 03/07/19 03:27 07:30 WBC 14.3 H 16.7 H RBC 3.62 L 3.57 L Hgb 9.7 L 9.6 L Hct 29.5 L 28.9 L MCV 81 81 MCH 26.8 L 26.9 L MCHC 32.9 33.2 RDW 14.8 H 14.9 H Plt Count 256 256 Seg Neutrophils % 88.5 H 89.0 H Assessment & Plan - Diagnosis (1) Abdominal pain Qualifiers: Abdominal location: right lower quadrant Qualified Code(s): R10.31 - Right lower quadrant pain Is this a current diagnosis for this admission?: Yes Plan: Impression: Persisting abdominal pain, slightly less tenderness; persisting leukocytosis of 16,000 and mild tachycardia, all despite IV antibiotics now 1 week following laparoscopic appendectomy in a 29-year-old white female with 20- week intrauterine . Discussion and recommendations: 1. I do not believe the patient is out of the king; spoken to the patient, patient's mother, and Dr. Real. In order to doubt intra-abdominal fluid collection, we will obtain an MRI scan of the abdomen and pelvis which is been ordered for this morning. 2. We will follow closely with you. (2) Leukocytosis Is this a current diagnosis for this admission?: Yes (3) Intrauterine Is this a current diagnosis for this admission?: Yes (4) Status post laparoscopic appendectomy Is this a current diagnosis for this admission?: Yes (5) Obesity (BMI 35.0-39.9 without comorbidity) Is this a current diagnosis for this admission?: Yes - Time Time Spent with patient: 15-24 minutes Smoking Cessation Education: over 10 minutes Medications reviewed and adjusted accordingly: Yes Anticipated discharge: Home
[2019-03-07] MEDS: PANTOPRAZOLE SODIUM 40 MG VIAL IV SCH (10:40)
--- NOTE | 2019-03-07 11:26 | PDOC PROGRESS REPORT ---
Subjective Progress Note for:: 03/07/19 Subjective:: She is leaking fluid and suspect SROM Reason For Visit: IUP 19+5 WEEKS NAUSEA AND VOMITING S/P APPENDECTOM Physical Exam - Physical Exam Vital Signs: Temp Pulse Resp BP Pulse Ox 98.6 F 121 H 18 139/73 H 98 03/07/19 07:28 03/07/19 07:28 03/07/19 07:28 03/07/19 07:28 03/07/19 07:28 Intake & Output 03/06/19 03/07/19 03/08/19 06:59 06:59 06:59 Intake Total 3284 2580 Balance 3284 2580 Weight 92.8 kg - Gynecological Exam Labia: discharge Vagina: discharge - Wynne to yellow discharge noted in vagina- large amount and malodorous Cervix: other - Cervix appears closed and on palpation it is thick and not dilated. It is soft and does not appear friable Cervix: other - leaking fluid noted, send fern and culture Uterus: other - Uterus not tender Mild tenderness right adnexa Result Laboratory Results: 03/07/19 07:30 03/07/19 03/07/19 03:27 07:30 WBC 14.3 H 16.7 H RBC 3.62 L 3.57 L Hgb 9.7 L 9.6 L Hct 29.5 L 28.9 L MCV 81 81 MCH 26.8 L 26.9 L MCHC 32.9 33.2 RDW 14.8 H 14.9 H Plt Count 256 256 Seg Neutrophils % 88.5 H 89.0 H Assessment & Plan - Diagnosis (1) Abdominal pain Qualifiers: Abdominal location: right lower quadrant Qualified Code(s): R10.31 - Right lower quadrant pain Is this a current diagnosis for this admission?: Yes (2) Intrauterine Is this a current diagnosis for this admission?: Yes (3) Status post laparoscopic appendectomy Is this a current diagnosis for this admission?: Yes - Time Time Spent with patient: 15-24 minutes - Plan Summary Plan Summary: suspect SROM at previable gestation. Plan to observation for now. Continue antibiotic. Check sono for position and fluid. She will most likely deliver.
--- NOTE | 2019-03-07 12:15 | RADIOLOGY REPORT (SQ) ---
EXAM DESCRIPTION: MRI PELVIS WITHOUT COMPLETED DATE/TIME: 03/07/2019 10:23 am REASON FOR STUDY: Pain, leukocytosis 7 d post-op appy pelvic abscess COMPARISON: None. TECHNIQUE: MRI of the pelvis was performed including sagittal T2, axial and coronal T2, T1, and STIR images. Patient is 20 weeks , 7 days postop from appendectomy, now with vaginal discharge. Clinical concern for possible right lower quadrant abscess LIMITATIONS: None. FINDINGS: On sagittal midline image 26, the cervix measures 2 cm in length, is partially effaced, wi th bulging membranes into the upper vagina. Qualitatively, intrauterine fluid around the fetus is ad equate. These findings were discussed with Dr. Sandoval from OB, 1030 hours. Metallic artifact from clips post appendectomy in the right lower quadrant coronal image 17, no righ t lower quadrant abscess is identified. Limited view of the liver, spleen, pancreas, adrenal glands, kidneys unremarkable. Tiny stones in th e gallbladder. No bowel obstruction. No gross free intraperitoneal fluid. In the pelvis, gravid uterus is present with the 20 weeks fetus by history. Placenta anterior. Adeq uate amniotic fluid. Again, cervix is open with bulging membranes into the upper vagina. In the left adnexa, a 4.6 cm simple ovarian cyst is present. Right ovary difficult to visualize. Bony structures are unremarkable. IMPRESSION: No MR evidence of right lower quadrant abscess given history of appendectomy 7 days ago. Cervix is open, 2 cm in length with bulging membranes into the upper vagina. These findings were dis cussed with Dr. Sandoval from OB, 1030 hours 03/07/2019. TECHNICAL DOCUMENTATION: JOB ID: [id number] [employer]- All Rights Reserved Reading location - IP/workstation name: [email or web address]
[2019-03-07] MEDS ORDERED: NALBUPHINE HCL INJ 10 MG/1 ML AMPULE ONE ×2 (14:06→15:58)
[2019-03-07 14:25] LABS: BACTERIA (WET MOUNT) 4+ BACTERIA SEEN; RBCS (WET MOUNT) 3+ RBCS SEEN; T.VAGINALIS (WET MOUNT) NO TRICHOMONAS SEEN; WBCS (WET MOUNT) 4+ WBCS SEEN; YEAST (WET MOUNT) NO YEAST SEEN
[2019-03-07] MEDS: PIPERACILLIN SODIUM/TAZOBACTAM 3.375 GM in NORMAL SALINE 100 ML IV SCH ×3 (15:00→22:02)
--- NOTE | 2019-03-07 15:48 | RADIOLOGY REPORT (SQ) ---
EXAM DESCRIPTION: U/S OB LIMITED COMPLETED DATE/TIME: 03/07/2019 3:33 pm REASON FOR STUDY: premature rupture of membranes COMPARISON: MR dated 03/07/2019. TECHNIQUE: Limited transabdominal grayscale ultrasound for evaluation of specific requested obstetri kaylyn parameters. LIMITATIONS: None. FINDINGS: EGA: 20 week 6 day. GABRIELLE: 07/19/2019. EFW: 383 g. CERVICAL LENGTH: 2.6 cm. Open. DANGELO: Largest measured pocket of fluid is 2.6 cm. FHR: 83 beats per minute. PRESENTATION: Cephalic. PLACENTA: Anterior ANATOMY: Not assessed OTHER: No other significant findings. IMPRESSION: LIMITED OBSTETRICAL ULTRASOUND WITH MEASURED PARAMETERS DELINEATED ABOVE. Trimester of : Second trimester - 13 weeks 1 day to 27 weeks 6 days. TECHNICAL DOCUMENTATION: JOB ID: [id number]- All Rights Reserved Reading location - IP/workstation name: [email or web address]
[2019-03-07] MEDS ORDERED: NALBUPHINE HCL INJ 10 MG/1 ML AMPULE IV ONE (16:15)
--- NOTE | 2019-03-07 16:39 | PDOC PROGRESS REPORT ---
Subjective Progress Note for:: 03/07/19 Reason For Visit: IUP 19+5 WEEKS NAUSEA AND VOMITING S/P APPENDECTOM Physical Exam - Physical Exam Vital Signs: Temp Pulse Resp BP Pulse Ox 100.2 F 127 H 16 137/79 H 98 03/07/19 15:37 03/07/19 15:37 03/07/19 15:37 03/07/19 15:37 03/07/19 15:37 Intake & Output 03/06/19 03/07/19 03/08/19 06:59 06:59 06:59 Intake Total 3284 2580 1000 Balance 3284 2580 1000 Weight 92.8 kg - Gynecological Exam Labia: discharge, other - The patient delivered a with no heartbeat. The placenta was delivered intact spontaneously at the same time. No perineal lacerations. Vagina: discharge - Wynne to yellow discharge noted in vagina- large amount and malodorous Cervix: other - Cervix appears closed and on palpation it is thick and not dilated. It is soft and does not appear friable Cervix: other - leaking fluid noted, send fern and culture Uterus: other - Uterus not tender Mild tenderness right adnexa Result Laboratory Results: 03/07/19 07:30 03/07/19 03/07/19 03:27 07:30 WBC 14.3 H 16.7 H RBC 3.62 L 3.57 L Hgb 9.7 L 9.6 L Hct 29.5 L 28.9 L MCV 81 81 MCH 26.8 L 26.9 L MCHC 32.9 33.2 RDW 14.8 H 14.9 H Plt Count 256 256 Seg Neutrophils % 88.5 H 89.0 H Impressions: Obstetrics Ultrasound 03/07/19 00:00 IMPRESSION: LIMITED OBSTETRICAL ULTRASOUND WITH MEASURED PARAMETERS DELINEATED ABOVE. Trimester of : Second trimester - 13 weeks 1 day to 27 weeks 6 days. Pelvis MRI 03/07/19 00:00 IMPRESSION: No MR evidence of right lower quadrant abscess given history of appendectomy 7 days ago. Cervix is open, 2 cm in length with bulging membranes into the upper vagina. These findings were discussed with Dr. Sandoval from OB, 1030 hours 03/07/2019. Assessment & Plan - Diagnosis (1) Abdominal pain Qualifiers: Abdominal location: right lower quadrant Qualified Code(s): R10.31 - Right lower quadrant pain Is this a current diagnosis for this admission?: Yes (2) Intrauterine Is this a current diagnosis for this admission?: Yes (3) Status post laparoscopic appendectomy Is this a current diagnosis for this admission?: Yes - Time Time Spent with patient: 15-24 minutes
[2019-03-07] MEDS ORDERED: PROMETHAZINE HCL 25 MG TABLET PO PRN (16:40)
[2019-03-07] MEDS ORDERED: MEASLES,MUMPS&RUBELLA VACC/PF 0.5 ML VIAL SUBCUT PRN (16:40)
[2019-03-07] MEDS ORDERED: ACETAMINOPHEN 650 MG SUPP.RECT PR PRN (16:40)
[2019-03-07] MEDS ORDERED: MAGNESIUM HYDROXIDE SUSP 30 ML UDCUP PO PRN (16:40)
[2019-03-07] MEDS ORDERED: GLYCERIN/WITCH HAZEL LEAF 1 EACH MED..WIPE TP PRN (16:40)
[2019-03-07] MEDS ORDERED: PROMETHAZINE HCL 25 MG SUPP.RECT PR PRN (16:40)
[2019-03-07] MEDS ORDERED: PROMETHAZINE HCL INJ 25 MG/1 ML VIAL IV PRN (16:40)
[2019-03-07] MEDS ORDERED: DIPHENHYDRAMINE HCL 25 MG CAPSULE PO PRN (16:40)
[2019-03-07] MEDS ORDERED: NA PHOS,M-B/NA PHOS,DI-BA (ADULT) 133 ML ENEMA PR PRN (16:40)
[2019-03-07] MEDS ORDERED: PSEUDOEPHEDRINE HCL 30 MG TABLET PO PRN (16:40)
[2019-03-07] MEDS ORDERED: ACETAMINOPHEN WITH CODEINE #3 TABLET PO PRN ×2 (16:40)
[2019-03-07] MEDS ORDERED: DIPH/PERTUSS(ACELL)/TETANUS VAC/PF 0.5 ML SYR (>=10YO) IM PRN (16:40)
[2019-03-07] MEDS ORDERED: ZOLPIDEM TARTRATE 5 MG TABLET PO PRN (16:40)
[2019-03-07] MEDS: FAMOTIDINE 20 MG TABLET PO SCH (22:02)
[2019-03-07] MEDS: IBUPROFEN 800 MG TABLET PO SCH (22:02)
[2019-03-08] MEDS: RINGERS SOLUTION,LACTATED 1,000 ML IV PRN (02:44)
[2019-03-08] MEDS: PIPERACILLIN SODIUM/TAZOBACTAM 3.375 GM in NORMAL SALINE 100 ML IV SCH ×4 (02:44→22:09)
[2019-03-08] MEDS: METRONIDAZOLE RTU 500 MG/NS 100 ML IV SCH (05:14)
[2019-03-08] MEDS: IBUPROFEN 800 MG TABLET PO SCH ×4 (05:14→22:09)
[2019-03-08 07:48] LABS: HEMATOCRIT 27.7 % (36.0-47.0); HEMOGLOBIN 9.3 g/dL (12.0-15.5); MEAN CORPUSCULAR HGB CONC 33.6 g/dL (32.0-36.0); MEAN CORPUSCULAR VOLUME 80 fl (80-97); PLATELET COUNT 284 10^3/uL (150-450); RED BLOOD COUNT 3.45 10^6/uL (3.72-5.28); WHITE BLOOD COUNT 12.5 10^3/uL (4.0-10.5)
[2019-03-08] MEDS: SENNOSIDES/DOCUSATE 8.6-50 MG 1 EACH TABLET PO SCH (09:31)
[2019-03-08] MEDS: PANTOPRAZOLE SODIUM 40 MG VIAL IV SCH (09:31)
--- NOTE | 2019-03-08 10:25 | PDOC PROGRESS REPORT ---
Subjective Progress Note for:: 03/08/19 Subjective:: Doing okay this am. Tolerating PO. NO n/v. Denies F/c. She is having light vaginal bleeding/discharge. No pain. Voiding without incidence Reason For Visit: IUP 19+5 WEEKS NAUSEA AND VOMITING S/P APPENDECTOM Physical Exam - Physical Exam Vital Signs: Temp Pulse Resp BP Pulse Ox 97.4 F 84 16 113/67 96 03/08/19 08:08 03/08/19 08:08 03/08/19 08:08 03/08/19 08:08 03/08/19 08:08 Intake & Output 03/07/19 03/08/19 03/09/19 06:59 06:59 06:59 Intake Total 2580 3150 Balance 2580 3150 Weight 92.8 kg General appearance: PRESENT: no acute distress Respiratory exam: PRESENT: clear to auscultation helen Cardiovascular exam: PRESENT: RRR, +S1, +S2 GI/Abdominal exam: PRESENT: normal bowel sounds, soft - No rebound or guarding. Fundus firm and nontender Skin exam: PRESENT: dry, warm - Gynecological Exam Labia: discharge, other - The patient delivered a infant with no heartbeat. The placenta was delivered intact spontaneously at the same time. No perineal lacerations. Vagina: discharge - Wynne to yellow discharge noted in vagina- large amount and malodorous Cervix: other - Cervix appears closed and on palpation it is thick and not dilated. It is soft and does not appear friable Cervix: other - leaking fluid noted, send fern and culture Uterus: other - Uterus not tender Mild tenderness right adnexa Result Laboratory Results: 03/08/19 07:24 03/08/19 07:24 WBC 12.5 H RBC 3.45 L Hgb 9.3 L Hct 27.7 L MCV 80 MCH 27.0 MCHC 33.6 RDW 15.0 H Plt Count 284 Impressions: Obstetrics Ultrasound 03/07/19 00:00 IMPRESSION: LIMITED OBSTETRICAL ULTRASOUND WITH MEASURED PARAMETERS DELINEATED ABOVE. Trimester of : Second trimester - 13 weeks 1 day to 27 weeks 6 days. Pelvis MRI 03/07/19 00:00 IMPRESSION: No MR evidence of right lower quadrant abscess given history of appendectomy 7 days ago. Cervix is open, 2 cm in length with bulging membranes into the upper vagina. These findings were discussed with Dr. Sandoval from OB, 1030 hours 03/07/2019. Assessment & Plan - Diagnosis (1) Status post laparoscopic appendectomy Is this a current diagnosis for this admission?: Yes (2) Leukocytosis Is this a current diagnosis for this admission?: Yes Plan: s/p with chorio/endometritis. WBC have dropped today. Afebrile. VSS Continue IV antibiotics for 24 hrs If remains afebrile possible d/c later tonight or tomorrow (3) care following vaginal delivery Is this a current diagnosis for this admission?: Yes Plan: No complications post delivery. VB light to moderate. NO pain. Tolerating PO and voiding - Time Time Spent with patient: 15-24 minutes Medications reviewed and adjusted accordingly: Yes Anticipated discharge: Home Within: within 24 hours
[2019-03-08] MEDS: FAMOTIDINE 20 MG TABLET PO SCH ×2 (12:13→22:09)
[2019-03-08] MEDS: METRONIDAZOLE 500 MG/NS RTU 500 MG/100 ML RTUPB IV SCH (17:25)
--- NOTE | 2019-03-08 22:29 | RADIOLOGY REPORT (SQ) ---
EXAM DESCRIPTION: US PELVIS COMPLETED DATE/TME: 03/08/2019 18:46 CLINICAL HISTORY: 29 years, Female, possible retained products, s/p demise deliv COMPARISON: None. TECHNIQUE: Axial 2-D grayscale images of the pelvis were acquired. Doppler was utilized. LIMITATIONS: None. FINDINGS: Cervix is closed, measuring 2.4 cm in length. Uterus measures 14.6 x 8.6 cm in size. The endometrium is thickened and heterogenous in echogenicity, measuring 2.7 cm in thickness. However, no increased Doppler flow is noted. Right ovary measures 3.5 x 3.6 x 3.6 cm in size. Left ovary measures 4.7 x 4.7 x 4.0 cm in size. It contains a simple cyst measuring 3.1 x 2.5 x 4.2 cm in size for which no further follow-up is necessary. No free fluid is noted. IMPRESSION: Thickened/diffusely heterogeneously echogenic endometrium without increased Doppler flow. Despite the absence of Doppler flow, the thickened/heterogenous appearance of the endometrium raises the possibility of retained products of conception. copyright 2010 [email or web address]- All Rights Reserved
[2019-03-09] MEDS: PIPERACILLIN SODIUM/TAZOBACTAM 3.375 GM in NORMAL SALINE 100 ML IV SCH ×2 (03:07→09:33)
[2019-03-09] MEDS: RINGERS SOLUTION,LACTATED 1,000 ML IV PRN (03:07)
[2019-03-09] MEDS: METRONIDAZOLE 500 MG/NS RTU 500 MG/100 ML RTUPB IV SCH (06:20)
[2019-03-09] MEDS: IBUPROFEN 800 MG TABLET PO SCH (06:20)
[2019-03-09 08:18] VITALS: BP 118/85
[2019-03-09 08:20] LABS: ABSOLUTE EOSINOPHILS # (AUTO) 0.2 10^3/uL (0.0-0.6); ABSOLUTE LYMPHOCYTES (AUTO) 1.5 10^3/uL (0.5-4.7); ABSOLUTE MONOCYTES (AUTO) 0.5 10^3/uL (0.1-1.4); ABSOLUTE NEUT (AUTO) 6.7 10^3/uL (1.7-8.2); BASOPHILS % (AUTO) 0.4 % (0-2); EOSINOPHILS % (AUTO) 2.1 % (0-6); HEMATOCRIT 27.1 % (36.0-47.0); HEMOGLOBIN 9.2 g/dL (12.0-15.5); LYMPHOCYTES % (AUTO) 16.7 % (13-45); MEAN CORPUSCULAR HEMOGLOBIN 27.5 pg (27.0-33.4); MEAN CORPUSCULAR HGB CONC 33.9 g/dL (32.0-36.0); MEAN CORPUSCULAR VOLUME 81 fl (80-97); PLATELET COUNT 249 10^3/uL (150-450); RED BLOOD COUNT 3.34 10^6/uL (3.72-5.28); RED CELL DISTRIBUTION WIDTH 15.4 % (11.5-14.0); SEGMENTED NEUTROPHILS % (AUTO) 74.8 % (42-78); TOTAL CELLS COUNTED % (AUTO) 100 %
[2019-03-09] MEDS: FAMOTIDINE 20 MG TABLET PO SCH (09:28)
[2019-03-09] MEDS: PANTOPRAZOLE SODIUM 40 MG VIAL IV SCH (09:34)
[2019-03-09] MEDS: SENNOSIDES/DOCUSATE 8.6-50 MG 1 EACH TABLET PO SCH (09:34)
--- NOTE | 2019-03-09 10:15 | PDOC DISCHARGE SUMMARY ---
Impression - Admit/DC Date/PCP Admission Date/Primary Care Provider: 03/07/19 11:00 JESSICA PEARSON MD Discharge Date: 03/09/19 - Discharge Diagnosis (1) Abdominal pain Is this a current diagnosis for this admission?: Yes (3) Leukocytosis Is this a current diagnosis for this admission?: Yes (4) Obesity (BMI 35.0-39.9 without comorbidity) Is this a current diagnosis for this admission?: Yes (5) Status post laparoscopic appendectomy Is this a current diagnosis for this admission?: Yes - Assessment Summary: patient s/p appendectomy and then found to have SROM with chorio. patient delivered 20 wks IUFD. elevated WBC. Did also expel something that was c/w a small piece of retained placenta yesterday. Since has had normal vaginal bleeding for post . Her abdominal pain is better and Leukocytosis is resolved. Cultures of vagina did grow out e.coli. Will discharge with po antibiotics of bactrim and doxycycline. - Additional Information Resuscitation Status: Full Code Discharge Diet: As Tolerated Discharge Activity: Balance Activity w/Rest, Pelvic Rest, No tub bath Referrals: JESSICA PEARSON MD [Primary Care Provider] - Prescriptions: Sulfamethoxazole/Trimethoprim [Bactrim Ds Tablet] 1 each PO BID #14 tablet Doxycycline Hyclate 100 mg PO BID #20 capsule Ibuprofen [Motrin 800 mg Tablet] 800 mg PO Q8 #60 tablet Home Medications: Prenat 115/Iron Fum/Folic/Dss [ 19 Tablet] 1 each PO DAILY 05/27/18 Doxycycline Hyclate 100 mg PO BID #20 capsule 03/09/19 Ibuprofen [Motrin 800 mg Tablet] 800 mg PO Q8 #60 tablet 03/09/19 Sulfamethoxazole/Trimethoprim [Bactrim Ds Tablet] 1 each PO BID #14 tablet 03/09/19 History of Present Illiness History of Present Illness: BARRON ALEXANDRA is a 29 year old female Physical Exam - Physical Exam Vital Signs: Temp Pulse Resp BP Pulse Ox 97.8 F 80 18 118/85 98 03/09/19 08:00 03/09/19 08:00 03/09/19 08:00 03/09/19 08:00 03/09/19 08:00 Intake & Output 03/08/19 03/09/19 03/10/19 06:59 06:59 06:59 Intake Total 3150 2200 200 Balance 3150 2200 200 Weight 93.1 kg - Gynecological Exam Labia: discharge, other - The patient delivered a infant with no heartbeat. The placenta was delivered intact spontaneously at the same time. No perineal lacerations. Vagina: discharge - Wynne to yellow discharge noted in vagina- large amount and malodorous Cervix: other - Cervix appears closed and on palpation it is thick and not dilated. It is soft and does not appear friable Cervix: other - leaking fluid noted, send fern and culture Uterus: other - Uterus not tender Mild tenderness right adnexa Results Laboratory Results: WBC 9.0 10^3/uL (4.0-10.5) 03/09/19 07:28 RBC 3.34 10^6/uL (3.72-5.28) L 03/09/19 07:28 Hgb 9.2 g/dL (12.0-15.5) L 03/09/19 07:28 Hct 27.1 % (36.0-47.0) L 03/09/19 07:28 MCV 81 fl (80-97) 03/09/19 07:28 MCH 27.5 pg (27.0-33.4) 03/09/19 07:28 MCHC 33.9 g/dL (32.0-36.0) 03/09/19 07:28 RDW 15.4 % (11.5-14.0) H 03/09/19 07:28 Plt Count 249 10^3/uL (150-450) 03/09/19 07:28 Lymph % (Auto) 16.7 % (13-45) 03/09/19 07:28 [place] % (Auto) 6.0 % (3-13) 03/09/19 07:28 Eos % (Auto) 2.1 % (0-6) 03/09/19 07:28 Baso % (Auto) 0.4 % (0-2) 03/09/19 07:28 Absolute Neuts (auto) 6.7 10^3/uL (1.7-8.2) 03/09/19 07:28 Absolute Lymphs (auto) 1.5 10^3/uL (0.5-4.7) 03/09/19 07:28 Absolute Monos (auto) 0.5 10^3/uL (0.1-1.4) 03/09/19 07:28 Absolute Eos (auto) 0.2 10^3/uL (0.0-0.6) 03/09/19 07:28 Absolute Basos (auto) 0.0 10^3/uL (0.0-0.2) 03/09/19 07:28 Seg Neutrophils % 74.8 % (42-78) 03/09/19 07:28 Urine Color YELLOW 03/04/19 16:28 Urine Appearance CLEAR 03/04/19 16:28 Urine pH 7.0 (5.0-9.0) 03/04/19 16:28 Ur Specific [place] 1.009 03/04/19 16:28 Urine Protein NEGATIVE mg/dL (NEGATIVE) 03/04/19 16:28 Urine Glucose (UA) NEGATIVE mg/dL (NEGATIVE) 03/04/19 16:28 Urine Ketones 80 mg/dL (NEGATIVE) H 03/04/19 16:28 Urine Blood NEGATIVE (NEGATIVE) 03/04/19 16:28 Urine Nitrite NEGATIVE (NEGATIVE) 03/04/19 16:28 Urine Bilirubin NEGATIVE (NEGATIVE) 03/04/19 16:28 Urine Urobilinogen NEGATIVE mg/dL (<2.0) 03/04/19 16:28 Ur Leukocyte Esterase NEGATIVE (NEGATIVE) 03/04/19 16:28 Urine WBC (Auto) 1 /HPF 03/04/19 16:28 Urine RBC (Auto) 0 /HPF 03/04/19 16:28 Urine Bacteria (Auto) 1+ /HPF 03/04/19 16:28 Squamous Epi Cells Auto <1 /HPF 03/04/19 16:28 Urine Mucus (Auto) RARE /LPF 03/04/19 16:28 Urine Ascorbic Acid NEGATIVE (NEGATIVE) 03/04/19 16:28 Amniotic Ferning Test FERN PATTERN ABSENT (ABSENT) 03/07/19 11:10 Bacteria (Wet Prep) 4+ BACTERIA SEEN 03/07/19 14:00 Trichomonas (Wet Prep) NO TRICHOMONAS SEEN 03/07/19 14:00 Vaginal WBC 4+ WBCS SEEN 03/07/19 14:00 Vaginal RBC 3+ RBCS SEEN 03/07/19 14:00 Vaginal Yeast NO YEAST SEEN 03/07/19 14:00 Urine Opiates Screen NEGATIVE 03/04/19 16:28 Urine Methadone Screen NEGATIVE 03/04/19 16:28 Ur Barbiturates Screen NEGATIVE 03/04/19 16:28 Ur Phencyclidine Scrn NEGATIVE 03/04/19 16:28 Ur Amphetamines Screen NEGATIVE 03/04/19 16:28 U Benzodiazepines Scrn NEGATIVE 03/04/19 16:28 Urine Cocaine Screen NEGATIVE 03/04/19 16:28 U Marijuana (THC) Screen NEGATIVE 03/04/19 16:28 Chlamydia DNA (PCR) NOT DETECTED (NOT DETECT) 03/07/19 02:00 N.gonorrhoeae DNA (PCR) NOT DETECTED (NOT DETECT) 03/07/19 02:00 Impressions: Obstetrics Ultrasound 03/07/19 00:00 IMPRESSION: LIMITED OBSTETRICAL ULTRASOUND WITH MEASURED PARAMETERS DELINEATED ABOVE. Trimester of : Second trimester - 13 weeks 1 day to 27 weeks 6 days. Pelvis MRI 03/07/19 00:00 IMPRESSION: No MR evidence of right lower quadrant abscess given history of appendectomy 7 days ago. Cervix is open, 2 cm in length with bulging membranes into the upper vagina. These findings were discussed with Dr. Sandoval from OB, 1030 hours 03/07/2019. Pelvis Ultrasound 03/08/19 18:46 IMPRESSION: Thickened/diffusely heterogeneously echogenic endometrium without increased Doppler flow. Despite the absence of Doppler flow, the thickened/heterogenous appearance of the endometrium raises the possibility of retained products of conception. copyright 2010 [employer]- All Rights Reserved Stroke Is this a Stroke Patient?: No Acute Heart Failure - Is this a Heart Failure Patient?: No
== END 2019-03-09 11:30 | disposition home or self-care (01) | DRG 831 ==
LOC: LC 14:56 → LR 17:55 → 2S 18:59 → OBSVTOIN 03-07 11:00
PROVIDERS: ADMIT Obstetrics & Gynecology Gynecology; ATTEND Obstetrics & Gynecology Gynecology
DX: O36.4XX0 Maternal care for intrauterine death, not applicable or unspecified (principal); O41.1220 Chorioamnionitis, second trimester, not applicable or unspecified; O99.212 Obesity complicating pregnancy, second trimester; E66.9 Obesity, unspecified; B96.20 Unspecified Escherichia coli [E. coli] as the cause of diseases classified elsewhere; Z37.1 Single stillbirth; Z3A.20 20 weeks gestation of pregnancy; Z90.49 Acquired absence of other specified parts of digestive tract
CPT/HCPCS: 36415; 72195; 76815; 76856; 80307; 81001; 85025; 85027; 87070; 87075; 87077; 87186; 87205; 87210; 87491; 87591; 88307; 90686; J0131; J0696; J1885; J2300; J2543; J2550; J3490; J7050; J7120; Q0114; S0164

== ENCOUNTER → 2019-04-09 | Outpatient (CLI) | payer BC ==
--- NOTE | 2019-04-09 16:28 | RADIOLOGY REPORT (SQ) ---
EXAM DESCRIPTION: VENOUS UNILATERAL LOWER COMPLETED DATE/TIME: 04/09/2019 3:42 pm REASON FOR STUDY: RLE PAIN M79.669 PAIN IN UNSPECIFIED LOWER LEG COMPARISON: None. TECHNIQUE: Dynamic and static magana scale and color images acquired of the right leg venous system. S elected spectral images acquired with additional compression and augmentation maneuvers. The contrala teral common femoral vein and saphenofemoral junction were also imaged. Images stored on PACS. LIMITATIONS: None. FINDINGS: COMMON FEMORAL: Normal phasicity, compression and augmentation. No visualized echogenic ma terial on magana scale. No defects on color images. FEMORAL: Normal compression and augmentation. No visualized echogenic material on magana scale. No defe cts on color images. POPLITEAL: Normal compression, augmentation. No visualized echogenic material on magana scale. No defec ts on color images. CALF VESSELS: Normal compression, augmentation. No visualized echogenic material on magana scale. No de fects on color images. GSV and SSV: Normal compression, augmentation. No visualized echogenic material on magana scale. No def ects on color images. ANY DEEP VENOUS INSUFFICIENCY: No. ANY EVIDENCE OF POPLITEAL CYST: No. OTHER: No other finding. CONTRALATERAL COMMON FEMORAL VEIN AND SAPHENOFEMORAL JUNCTION: Normal phasicity, compression and augmentation. No visualized echogenic material on magana scale. No de fects on color images. IMPRESSION: NO EVIDENCE OF DVT OR SVT IN THE RIGHT LEG. TECHNICAL DOCUMENTATION: JOB ID: [id number] [employer]- All Rights Reserved Reading location - IP/workstation name: [email or web address]
== END ==
LOC: SP 13:32
PROVIDERS: ATTEND Obstetrics & Gynecology
DX: M79.604 Pain in right leg (principal)
CPT/HCPCS: 93971

== ENCOUNTER 2019-07-31 19:02 | Emergency (ER) | payer BC ==
[2019-07-31] MEDS ORDERED: ONDANSETRON 4 MG TAB.RAPDIS PO ONE (19:21)
--- NOTE | 2019-07-31 19:22 | ER Document Report ---
ED Medical Screen (RME) - General Stated Complaint: UPPER ABDOMINAL PAIN Time Seen by Provider: 07/31/19 19:17 Mode of Arrival: Ambulatory Information source: Patient Notes: 29-year-old female with history of gallstones presents emergency department with complaints of right upper quad abdominal pain and vomiting since last night. Reports she had grilled chicken and broccoli for dinner. She reports approximately 2300 last night she started vomiting having excruciating pain. Reports she is been unable to hold any fluids down. No complaints of fever or diarrhea. I have greeted and performed a rapid initial assessment of this patient. A comprehensive ED assessment and evaluation of the patient, analysis of test results and completion of the medical decision making process will be conducted by additional ED providers. TRAVEL OUTSIDE OF THE [place] IN LAST 30 DAYS: No - Related Data Allergies/Adverse Reactions: No Known Allergies Allergy (Verified 05/04/19 15:41) Past Medical History Pulmonary Medical History: Reports: Hx Pneumonia - age 14 Past Surgical History: Reports: Hx Appendectomy - Immunizations Hx Diphtheria, Pertussis, Tetanus Vaccination: Yes
[2019-07-31 20:04] LABS: ABSOLUTE EOSINOPHILS # (AUTO) 0.1 10^3/uL (0.0-0.6); ABSOLUTE LYMPHOCYTES (AUTO) 2.1 10^3/uL (0.5-4.7); ABSOLUTE MONOCYTES (AUTO) 0.6 10^3/uL (0.1-1.4); ABSOLUTE NEUT (AUTO) 5.8 10^3/uL (1.7-8.2); BASOPHILS % (AUTO) 0.2 % (0-2); EOSINOPHILS % (AUTO) 0.6 % (0-6); HEMATOCRIT 37.6 % (36.0-47.0); HEMOGLOBIN 12.4 g/dL (12.0-15.5); LYMPHOCYTES % (AUTO) 24.3 % (13-45); MEAN CORPUSCULAR HGB CONC 33.1 g/dL (32.0-36.0); MEAN CORPUSCULAR VOLUME 79 fl (80-97); MONOCYTES % (AUTO) 6.7 % (3-13); PLATELET COUNT 306 10^3/uL (150-450); RED BLOOD COUNT 4.78 10^6/uL (3.72-5.28); SEGMENTED NEUTROPHILS % (AUTO) 68.2 % (42-78); TOTAL CELLS COUNTED % (AUTO) 100 %; WHITE BLOOD COUNT 8.5 10^3/uL (4.0-10.5)
[2019-07-31 20:05] LABS: ALBUMIN 4.2 g/dL (3.5-5.0); ALKALINE PHOSPHATASE 110 U/L (38-126); ANION GAP 6 (5-19); ASPARTATE AMINO TRANSFERASE 341 U/L (14-36); BILIRUBIN,DIRECT 0.5 mg/dL (0.0-0.4); BLOOD UREA NITROGEN 8 mg/dL (7-20); CALCIUM 9.5 mg/dL (8.4-10.2); CARBON DIOXIDE 32 mmol/L (22-30); CHLORIDE 101 mmol/L (98-107); GLUCOSE 102 mg/dL (75-110); POTASSIUM 4.1 mmol/L (3.6-5.0); TOTAL PROTEIN 7.9 g/dL (6.3-8.2)
--- NOTE | 2019-07-31 20:17 | RADIOLOGY REPORT (SQ) ---
EXAM DESCRIPTION: US ABDOMEN LIMITED COMPLETED DATE/TME: 07/31/2019 19:21 CLINICAL HISTORY: 29 years, Female, ruq pain hx gallstones COMPARISON: None. TECHNIQUE: Axial 2-D grayscale images of the abdomen were acquired. Doppler was utilized. LIMITATIONS: None. FINDINGS: Visualized portions of the pancreas are normal in echogenicity. Abdominal aortic measurements are as follows: Proximal: 1.7 cm Mid: 1.5 cm Distal: 1.3 cm The liver is diffusely echogenic. It measures 15.4 cm in length. No focal liver lesions. Antegrade flow is documented within the main portal vein. Common bile duct diameter measures 7 mm. Gallbladder wall thickness measures 2 mm. Echogenic foci are noted about the gallbladder neck. Sonographic Foster sign was negative. Right kidney measures 10.8 x 4.4 x 4.8 cm in size. No hydronephrosis. No significant free fluid is identified within the imaged upper abdomen. IMPRESSION: Suspect cholelithiasis without sonographic evidence of acute cholecystitis. Echogenic liver, suggestive of hepatic steatosis. copyright 2010 [employer]- All Rights Reserved
[2019-07-31 20:42] LABS: APPEARANCE,URINE SLIGHTLY-CLOUDY; BILIRUBIN,URINE SMALL (NEGATIVE); COLOR,URINE AMBER; GLUCOSE, URINE NEGATIVE (NEGATIVE); KETONES,URINE NEGATIVE (NEGATIVE); LEUKOCYTE ESTERASE,URINE TRACE (NEGATIVE); NITRITE,URINE NEGATIVE (NEGATIVE); PROTEIN,URINE 100 mg/dL (NEGATIVE); URINE SPECIFIC GRAVITY 1.028
--- NOTE | 2019-07-31 21:53 | ER Document Report ---
ED General - General Chief Complaint: Abdominal Pain Stated Complaint: UPPER ABDOMINAL PAIN Time Seen by Provider: 07/31/19 19:17 Primary Care Provider: EDUARD MANE MD [ACTIVE STAFF] - Follow up as needed Mode of Arrival: Ambulatory Information source: Patient, Relative Notes: Patient is a 29-year-old female presenting to the emergency department chief complaint of abdominal pain. Patient states it started yesterday evening it seemed to subside however this afternoon the pain to the right quadrant began to intensify and she states that she presented to the emergency department. Patient is had her abdomen examined in the past is been told that she had gall stones. Patient states that she has never had pain to this degree. TRAVEL OUTSIDE OF THE [place] IN LAST 30 DAYS: No - HPI Onset: Yesterday Onset/Duration: Gradual, Worse Quality of pain: Pressure, Throbbing Severity: Moderate Pain Level: 3 Associated symptoms: Nausea, Vomiting Exacerbated by: Food Relieved by: Denies Similar symptoms previously: Yes Recently seen / treated by doctor: No - Related Data Allergies/Adverse Reactions: No Known Allergies Allergy (Verified 05/04/19 15:41) Home Medications: control Past Medical History - General Information source: Patient, Relative - Social History Smoking Status: Never Smoker Chew tobacco use (# tins/day): No Frequency of alcohol use: None Drug Abuse: None Lives with: Family, Spouse/Significant other Family History: None Patient has suicidal ideation: No Patient has homicidal ideation: No Pulmonary Medical History: Reports: Hx Pneumonia - age 14 Past Surgical History: Reports: Hx Appendectomy - Immunizations Hx Diphtheria, Pertussis, Tetanus Vaccination: Yes Review of Systems - Review of Systems Constitutional: No symptoms reported EENT: No symptoms reported Cardiovascular: No symptoms reported Respiratory: No symptoms reported Gastrointestinal: See HPI Genitourinary: No symptoms reported Female Genitourinary: No symptoms reported Musculoskeletal: No symptoms reported Skin: No symptoms reported Hematologic/Lymphatic: No symptoms reported Neurological/Psychological: No symptoms reported Physical Exam - Vital signs Vitals: Temp Pulse Resp BP Pulse Ox 98.1 F 95 18 136/93 H 99 07/31/19 19:20 07/31/19 19:20 07/31/19 19:20 07/31/19 19:20 07/31/19 19:20 - Notes Notes: PHYSICAL EXAMINATION: GENERAL: Well-appearing, well-nourished and in no acute distress. HEAD: Atraumatic, normocephalic. EYES: Pupils equal round and reactive to light, extraocular movements intact, sclera anicteric, conjunctiva are normal. ENT: nares patent, oropharynx clear without exudates. Moist mucous membranes. NECK: Normal range of motion, supple without lymphadenopathy, no appreciable JVD LUNGS: Lungs clear to auscultation bilaterally and equal. No wheezes rales or rhonchi. HEART: Regular rate and rhythm without murmurs ABDOMEN: Soft, tenderness to the right upper quadrant and upper abdomen, normal bowel sounds. No guarding, no rebound. No masses appreciated. EXTREMITIES: Active full range of motion, no pitting or edema. No cyanosis. 2+ pulses x4 NEUROLOGICAL: No focal neurological deficits. Moves all extremities spontaneously and on command. SKIN: Warm, Dry, and intact. Normal turgor, no rashes or lesions noted. Course - Re-evaluation Re-evalutation: 07/31/19 22:21 I did review with the patient and her the laboratory and radiologic results. At this time there is no signs of cholecystitis however there is signs of cholelithiasis there is also increased lipase as well as elevated liver enzymes. Patient states that they have been following elevated liver enzymes which go up and down spontaneously she has an appointment with her primary care provider on Friday. I advised her to follow-up with her physician on Friday and have him review labs I also have given the patient information for general surgery on-call for possible elective cholecystectomy. Patient is agreeable with care plan she is given Zofran dispense pack and prescription for same. Patient is stable at time of discharge - Vital Signs Vital signs: Temp Pulse Resp BP Pulse Ox 98.1 F 95 18 136/93 H 99 07/31/19 19:20 07/31/19 19:20 07/31/19 19:20 07/31/19 19:20 07/31/19 19:20 - Laboratory Result Diagrams: 07/31/19 19:35 07/31/19 19:35 Laboratory results interpreted by me: 07/31/19 07/31/19 07/31/19 19:35 19:35 20:29 MCV 79 L MCH 26.0 L RDW 15.0 H Carbon Dioxide 32 H Direct Bilirubin 0.5 H AST 341 H ALT 274 H Lipase 527.9 H Urine Protein 100 H Urine Blood LARGE H Urine Bilirubin SMALL H Urine Urobilinogen 2.0 H Ur Leukocyte Esterase TRACE H - Diagnostic Test Radiology reviewed: Reports reviewed Discharge - Discharge Clinical Impression: Elevated liver enzymes Cholelithiases Qualifiers: Cholelithiasis location: gallbladder Cholecystitis presence: without cholecystitis Biliary obstruction: without biliary obstruction Qualified Code(s): K80.20 - Calculus of gallbladder without cholecystitis without obstruction Condition: Stable Disposition: HOME, SELF-CARE Instructions: Abdominal Pain ([facility]) Additional Instructions: Recommend following a brat diet increase clear fluids follow-up with general surgery as well as your family physician. Call for an appointment to the surgeon. Prescriptions: Ondansetron [Zofran Odt 4 mg Tablet] 1 - 2 tab PO Q4H PRN #15 tab.rapdis PRN Reason: For Nausea/Vomiting Referrals: EDUARD MANE MD [ACTIVE STAFF] - Follow up as needed
[2019-07-31] MEDS ORDERED: ONDANSETRON ODT 4 MG TAB (6 TAB/ER DISP) PO PRN (21:55)
[2019-07-31 22:29] VITALS: BP 125/88
== END 2019-07-31 22:27 | disposition home or self-care (01) ==
LOC: ER 19:02
DX: K80.20 Calculus of gallbladder without cholecystitis without obstruction (principal); R74.8 Abnormal levels of other serum enzymes; R11.2 Nausea with vomiting, unspecified
CPT/HCPCS: 99284; 36415; 83690; 84703; 85025; 80053; 81001; 76705; S0119